=== PATIENT | male | born 1985 | race Two or more races ===

== ENCOUNTER 2020-08-05 21:03 | Emergency (ER) | payer SELFPAY ==
[2020-08-05 21:10] VITALS: BP 117/64; PULSE 106; TEMP 100.6; BMI 28.0
[2020-08-05] MEDS ORDERED: ACETAMINOPHEN 325 MG TABLET (FP) ONE (21:13)
== END 2020-08-05 22:11 | disposition home or self-care (01) ==
LOC: JER 21:03
DX: U07.1 COVID-19 (principal)
CPT/HCPCS: 99283-25; C9803; U0003

== ENCOUNTER 2021-01-23 01:43 | Emergency (ER) | payer OTHER ==
[2021-01-23 02:13] VITALS: BMI 28.0
[2021-01-23] MEDS ORDERED: SODIUM CHLORIDE 0.9% 500 ML INFUS.BAG IV ONE (03:24)
[2021-01-23 04:14] LABS: CHLORIDE 104 mmol/L (98-107); SODIUM 138 mmol/L (136-145)
[2021-01-23 04:17] LABS: CALCIUM 9.1 mg/dL (8.5-10.1)
[2021-01-23 04:18] LABS: ALBUMIN 3.9 g/dl (3.4-5.0); ANION GAP 6 MMOL/L (8-16); BLOOD UREA NITROGEN 13.2 mg/dL (7-18); CO2 28 mmol/L (21-32); GLUCOSE,RANDOM 115 mg/dL (74-106); LIPASE 124 U/L (73-393)
[2021-01-23 04:21] LABS: CREATININE 1.2 mg/dL (0.55-1.3); SGOT/AST 22 U/L (15-37); SGPT/ALT 36 U/L (13-61)
[2021-01-23 04:22] LABS: BILIRUBIN,TOTAL 0.4 mg/dL (0.2-1)
[2021-01-23 04:24] LABS: ALK PHOS 93 U/L (45-117)
[2021-01-23 04:47] LABS: BASO % 0.3 % (0-2.0); EOS % 0.4 % (0-4.5); HEMATOCRIT 48.5 % (35.4-49); HEMOGLOBIN 17.2 GM/dL (11.7-16.9); LYMPH % 10.8 % (8-40); MCH 32.3 pg (25.7-33.7); MCHC 35.4 g/dl (32.0-35.9); MEAN CELL VOLUME 91.2 fl (80-96); MEAN PLT VOLUME 9.7 fl (7.5-11.1); MONO % 4.7 % (3.8-10.2); NEUT % 83.8 % (42.8-82.8); PLATELET COUNT 251 10^3/uL (134-434); RBC 5.32 M/mm3 (4.00-5.60); RDW 13.7 % (11.9-15.9); WHITE BLOOD COUNT 8.7 K/mm3 (4.0-10.0)
[2021-01-23 05:44] VITALS: BP 108/66; PULSE 90; TEMP 98.6
== END 2021-01-23 06:40 | disposition home or self-care (01) ==
LOC: JER 01:43
DX: R42 Dizziness and giddiness (principal); F10.99 Alcohol use, unspecified with unspecified alcohol-induced disorder
CPT/HCPCS: 36415; 80053; 82550; 82553; 83690; 84484; 85025; 93005; 93010; 99283-25